=== PATIENT | female | born 1950 | race Caucasian/White ===

== ENCOUNTER 2016-11-24 06:12 | Emergency (ER) | payer MEDICARE ==
[2016-11-24] MEDS ORDERED: IBUPROFEN 600 MG TABLET PO ONE (08:43)
[2016-11-24] MEDS ORDERED: DOXYCYCLINE HYCLATE 100 MG TABLET PO ONE (08:43)
[2016-11-24 09:37] LABS: APPEARANCE,URINE CLEAR; BILIRUBIN,URINE NEGATIVE (NEGATIVE); GLUCOSE, URINE NEGATIVE (NEGATIVE); KETONES,URINE NEGATIVE (NEGATIVE); LEUKOCYTE ESTERASE,URINE MODERATE (NEGATIVE); NITRITE,URINE NEGATIVE (NEGATIVE); PROTEIN,URINE NEGATIVE (NEGATIVE); URINE SPECIFIC GRAVITY 1.011; UROBILINOGEN,URINE NEGATIVE mg/dL (<2.0)
--- NOTE | 2016-11-24 10:29 | ER Document Report ---
ED General - General Chief Complaint: Wound Infection Stated Complaint: POSSIBLE BUG BITE TRAVEL OUTSIDE OF THE [place] IN LAST 30 DAYS: No - HPI Patient complains to provider of: wound infection Notes: Patient coming in for multiple complaints patient's most important complaint is a wound infection of the left anterior lopes patient states had a bite approximately one week ago 2 days ago states that she dug a tick out of the wound. States since that time erythema now is having joint pain jaw pain shoulder pain. Patient also complains of left flank pain. Patient also complains of left shoulder pain after a fall she suffered this morning. Upon my evaluation patient is lying on her side quietly in no obvious distress. - Related Data Allergies/Adverse Reactions: adhesive tape [Adhesive Tape] Allergy (Intermediate, Verified 11/24/16 06:47) latex Allergy (Verified 11/24/16 06:47) cyclobenzaprine [From Flexeril] Adverse Reaction (Verified 11/24/16 06:47) Past Medical History - Social History Smoking Status: Never Smoker Chew tobacco use (# tins/day): No Frequency of alcohol use: None Drug Abuse: None Family History: Reviewed & Not Pertinent Patient has suicidal ideation: No Patient has homicidal ideation: No - Past Medical History Cardiac Medical History: Reports: Hx Atrial Fibrillation, Hx Congestive Heart Failure, Hx Hypercholesterolemia, Hx Hypertension Pulmonary Medical History: Denies: Hx Tuberculosis Neurological Medical History: Denies: Hx Seizures Endocrine Medical History: Reports: Hx Hypothyroidism. Denies: Hx Diabetes Mellitus Type 1, Hx Diabetes Mellitus Type 2, Hx Hyperthyroidism Renal/ Medical History: Reports: Hx End Stage Renal Disease - renal insufficiency. Denies: Hx Peritoneal Dialysis GI Medical History: Denies: Hx Cirrhosis, Hx Gastroesophageal Reflux Disease, Hx Hepatitis Musculoskeltal Medical History: Reports Hx Fibromyalgia Psychiatric Medical History: Reports: Hx Bipolar Disorder Infectious Medical History: Denies: Hx Hepatitis Past Surgical History: Reports: Hx Appendectomy, Hx Hysterectomy. Denies: Hx Pacemaker - Immunizations Hx Diphtheria, Pertussis, Tetanus Vaccination: Yes Review of Systems - Review of Systems Constitutional: No symptoms reported EENT: No symptoms reported Cardiovascular: No symptoms reported Respiratory: No symptoms reported Gastrointestinal: No symptoms reported Genitourinary: No symptoms reported Female Genitourinary: No symptoms reported Musculoskeletal: Other - Joint pain myalgias left shoulder pain after fall and wound infection Skin: No symptoms reported Hematologic/Lymphatic: No symptoms reported Neurological/Psychological: No symptoms reported -: Yes All other systems reviewed and negative Physical Exam - Vital signs Vitals: Temp Pulse Resp BP Pulse Ox 97.4 F 59 L 18 129/66 H 95 11/24/16 06:19 11/24/16 06:19 11/24/16 06:19 11/24/16 06:19 11/24/16 06:19 Interpretation: Normal - General General appearance: Appears well, Alert - HEENT Head: Normocephalic, Atraumatic Eyes: Normal Pupils: PERRL - Respiratory Respiratory status: No respiratory distress Chest status: Nontender Breath sounds: Normal Chest palpation: Normal - Cardiovascular Rhythm: Regular Heart sounds: Normal auscultation Murmur: No - Abdominal Inspection: Normal Distension: No distension Bowel sounds: Normal Tenderness: Nontender Organomegaly: No organomegaly - Back Back: Normal, Nontender - Extremities General upper extremity: Normal inspection, Nontender, Normal color, Normal ROM , Normal temperature General lower extremity: Nontender, Normal color, Normal ROM, Normal temperature , Normal weight bearing. No: Normal inspection - Patient has a wound proximal a 2 cm with 2 cm into the subcutaneous space fat with surrounding erythema on the left anterior lopes with signs of surrounding cellulitis no purulent drainage., Kamini's sign - Neurological Neuro grossly intact: Yes Cognition: Normal Orientation: AAOx4 Lagrange Coma Scale Eye Opening: Spontaneous Loco Coma Scale Verbal: Oriented Loco Coma Scale Motor: Obeys Commands Lagrange Coma Scale Total: 15 Speech: Normal Motor strength normal: LUE, RUE, LLE, RLE Sensory: Normal - Psychological Associated symptoms: Normal affect, Normal mood - Skin Skin Temperature: Warm Skin Moisture: Dry Skin Color: Normal Course - Re-evaluation Re-evalutation: 11/24/16 10:37 Reevaluation of the patient at this time patient is lying on her right side. Splint to patient that we will treat her with infection doxycycline urinalysis looks to have infection as well therefore doxycycline should be a good choice to also cover urinary infection. Patient states that she is very upset this time is that she has been on possible her entire ER stay. I did make mention to the patient that she has been lying on her right side looking very comfortable multiple times unable by the room patient was accepted stating that she never received the Lidoderm patch to have a mentioned on my first encounter explained to patient that she was allergic to adhesives. Patient otherwise has normal vital signs as showed no signs of distress or severe pain during her stay here in the ER. After last evaluation on did evaluate the patient's narcotics database does show multiple prescriptions for benzodiazepines and multiple prescriptions for narcotics in September. 11/24/16 14:48 Patient after initial evaluation requesting x-ray of the shoulder sprain the patient is in need to this she was able to pull herself up out of bed to sit up so I can listen to her lung sounds at this time do not feel there is no need for a shoulder x-ray. - Vital Signs Vital signs: Temp Pulse Resp BP Pulse Ox 98 F 56 L 16 111/59 L 96 11/24/16 11:08 11/24/16 11:08 11/24/16 11:08 11/24/16 11:08 11/24/16 11:08 - Laboratory Laboratory results interpreted by me: 11/24/16 09:10 Urine Blood MODERATE H Ur Leukocyte Esterase MODERATE H Discharge - Discharge Clinical Impression: Wound infection UTI (urinary tract infection) Qualifiers: Urinary tract infection type: site unspecified Hematuria presence: without hematuria Qualified Code(s): N39.0 - Urinary tract infection, site not specified Condition: Good Disposition: HOME, SELF-CARE Instructions: Urinary Tract Infection ([facility]), Wound Infection ([facility]), Chronic Pain Control ([facility]) Additional Instructions: We will start you on antibiotic on doxycycline for your wound infection. I am concern is that she state that this was a wound due to a tick bite. We will send laboratory studies looking for Lyme's disease and other tickborne illnesses. These laboratory testing results will not be available for approximately one week. He can follow-up with your primary care physician for these results. Most tickborne illnesses can be cured with doxycycline. Take medications as prescribed follow-up with your Dr. Continue to take Tylenol for your pain Prescriptions: Doxycycline Hyclate 100 mg PO BID #14 capsule Tramadol HCl [Ultram 50 mg Tablet] 50 mg PO ASDIR PRN #10 tablet PRN Reason: Forms: Return to Work
[2016-11-24 11:15] VITALS: BP 111/59
[2016-11-27 17:50] LABS: LYME DISEASE IGG AND IGM AB <0.91 ISR (0.00-0.90)
[2016-11-28 07:19] LABS: ROCKY MTN SPOTTED FEV IGG EIA Negative (Negative)
== END 2016-11-24 11:08 | disposition home or self-care (01) ==
LOC: ER 06:12
DX: S80.862A Insect bite (nonvenomous), left lower leg, initial encounter (principal); N39.0 Urinary tract infection, site not specified; W57.XXXA Bitten or stung by nonvenomous insect and other nonvenomous arthropods, initial encounter
CPT/HCPCS: 99283; 36415; 87040; 87086; 81001; 86757 ×2; 86618 ×2; 86617 ×2; A9270

== ENCOUNTER → 2017-02-06 | Outpatient (CLI) | payer MEDICARE, OTHER ==
--- NOTE | 2017-02-06 13:40 | WOMENS IMAGING REPORT ---
EXAM DESCRIPTION: BONE DENSITY HIP/SPINE COMPLETED DATE/TIME: 02/06/2017 1:29 pm REASON FOR STUDY: Z78.0 Z12.31 ENCNTR SCREEN MAMMOGRAM FOR MALIGNANT NEOPLASM OF JULIETTE Z78.0 ASYMPTO MATIC MENOPAUSAL STATE COMPARISON: None. TECHNIQUE: Dual-Energy X-ray Absorptiometry (DEXA) of the AP Spine and Hip. LIMITATIONS: None. FINDINGS: LUMBAR SPINE: The bone mineral density (BMD) measured from L1-L4 in the AP projection correlates with a T-score of -2.1, which is osteopenia as defined by the World Health Organization. HIP: The bone mineral density (BMD) measured in the left hip correlates with a T-score of -1.8, which is o steopenia as defined by the World Health Organization. IMPRESSION: 1. LUMBAR SPINE: OSTEOPENIA. 2. HIP: OSTEOPENIA. COMMENT: The World Health Organization defines low BMD as follows: T-score: Normal: Greater than -1.0 Osteopenia: Between -1.0 and -2.5 Osteoporosis: Less than -2.5 without fractures Established osteoporosis: Less than -2.5 with fractures In general, you may wish to consider: Diagnosis Treatment Follow-up DEXA Normal BMD Prevention 2-3 years Osteopenia Prevention/Therapy 1-2 years Osteoporosis Therapy Yearly TECHNICAL DOCUMENTATION: JOB ID: [id number]- All Rights Reserved
--- NOTE | 2017-02-06 17:22 | WOMENS IMAGING REPORT ---
EXAM DESCRIPTION: BILAT SCREENING MAMMO W/CAD COMPLETED DATE/TIME: 02/06/2017 1:29 pm REASON FOR STUDY: Z12.31, ROUTINE SCREENING MAMMO Z12.31 ENCNTR SCREEN MAMMOGRAM FOR MALIGNANT NEOP LASM OF JULIETTE Z78.0 ASYMPTOMATIC MENOPAUSAL STATE COMPARISON: 12/26/2015 and 05/31/2014. TECHNIQUE: Standard craniocaudal and mediolateral oblique views of each breast recorded using digita l acquisition. LIMITATIONS: None. FINDINGS: No masses, calcifications or architectural distortion. No areas of suspicion. Read with the assistance of CAD. .[facility] - R2 Cenova Version 1.3 .[facility] Imaging - R2 Cenova Version 1.3 .[facility] - R2 Cenova Version 2.4 .[facility] - R2 Cenova Version 2.4 .[facility] - R2 Emr Specialist Version 9.2 IMPRESSION: NORMAL MAMMOGRAM. BIRADS 1. BREAST DENSITY: a. The breasts are almost entirely fatty. BIRAD: 1 NEGATIVE RECOMMENDATION: ROUTINE SCREENING COMMENT: The patient has been notified of the results by letter per MQSA requirements. Additional no tification policies are in place for contacting patient with suspicious or incomplete findings. Quality ID #225: The [employer] recommends an annual screening mammogram for women aged 40 years or over. This facility utilizes a reminder system to ensure that all patients receive reminder letters, and/or direct phone calls for appointments. This includes reminders for routine scr eening mammograms, diagnostic mammograms, or other Breast Imaging Interventions when appropriate. Th is patient will be placed in the appropriate reminder system. The [employer] (ACR) has developed recommendations for screening MRI of the breast s in certain patient populations, to be used in conjunction with mammography. Breast MRI surveillanc e may be appropriate for women with more than 20% lifetime risk of developing breast cancer as deter mined by genetic testing, significant family history of the disease, or history of mantle radiation f or Hodgkins Disease. ACR Practice Guidelines 2008. TECHNICAL DOCUMENTATION: FINDING NUMBER: (1) ASSESSMENT: (1) JOB ID: [id number] [employer]- All Rights Reserved
== END ==
LOC: WI 13:16
PROVIDERS: ATTEND Nurse Practitioner Family
DX: Z12.31 Encounter for screening mammogram for malignant neoplasm of breast (principal); Z78.0 Asymptomatic menopausal state; M85.88 Other specified disorders of bone density and structure, other site
CPT/HCPCS: 77080; G0202; 77067

== ENCOUNTER 2017-02-20 05:36 | Day surgery (SDC) | payer MEDICARE, MEDICAID, OTHER ==
--- NOTE | 2017-02-13 10:34 | EKG REPORT ---
SEVERITY:- BORDERLINE ECG - SINUS BRADYCARDIA PROBABLE LEFT ATRIAL ABNORMALITY : Confirmed by: Melanie Shields 13-Feb-2017 10:33:31
[2017-02-13 10:50] LABS: ABSOLUTE BASOPHILS # (AUTO) 0.2 10^3/uL (0.0-0.2); ABSOLUTE EOSINOPHILS # (AUTO) 0.3 10^3/uL (0.0-0.6); ABSOLUTE LYMPHOCYTES (AUTO) 3.3 10^3/uL (0.5-4.7); ABSOLUTE MONOCYTES (AUTO) 0.8 10^3/uL (0.1-1.4); ABSOLUTE NEUT (AUTO) 3.9 10^3/uL (1.7-8.2); BASOPHILS % (AUTO) 1.8 % (0-2); EOSINOPHILS % (AUTO) 4.1 % (0-6); HEMATOCRIT 40.5 % (36.0-47.0); HEMOGLOBIN 13.2 g/dL (12.0-15.5); HGB HCT DIFFERENCE -0.9; LYMPHOCYTES % (AUTO) 39.1 % (13-45); MEAN CORPUSCULAR HEMOGLOBIN 29.7 pg (27.0-33.4); MEAN CORPUSCULAR HGB CONC 32.6 g/dL (32.0-36.0); MEAN CORPUSCULAR VOLUME 91 fl (80-97); MONOCYTES % (AUTO) 9.2 % (3-13); RED BLOOD COUNT 4.45 10^6/uL (3.72-5.28); RED CELL DISTRIBUTION WIDTH 14.3 % (11.5-14.0); SEGMENTED NEUTROPHILS % (AUTO) 45.8 % (42-78); WHITE BLOOD COUNT 8.5 10^3/uL (4.0-10.5)
--- NOTE | 2017-02-13 10:58 | RADIOLOGY REPORT (SQ) ---
EXAM DESCRIPTION: CHEST PA/LATERAL COMPLETED DATE/TIME: 02/13/2017 10:43 am REASON FOR STUDY: PRE OP COMPARISON: 08/30/2016 EXAM PARAMETERS: NUMBER OF VIEWS: two views TECHNIQUE: Digital Frontal and Lateral radiographic views of the chest acquired. RADIATION DOSE: NA LIMITATIONS: none FINDINGS: LUNGS AND PLEURA: No opacities, masses or pneumothorax. No pleural effusion. MEDIASTINUM AND HILAR STRUCTURES: No masses or contour abnormalities. HEART AND VASCULAR STRUCTURES: Heart normal size. No evidence for failure. BONES: No acute findings. HARDWARE: None in the chest. OTHER: No other significant finding. IMPRESSION: NO SIGNIFICANT RADIOGRAPHIC FINDING IN THE CHEST. TECHNICAL DOCUMENTATION: JOB ID: [id number] [employer]- All Rights Reserved
[2017-02-13 11:06] LABS: APPEARANCE,URINE CLEAR; BILIRUBIN,URINE NEGATIVE (NEGATIVE); GLUCOSE, URINE NEGATIVE (NEGATIVE); KETONES,URINE NEGATIVE (NEGATIVE); LEUKOCYTE ESTERASE,URINE TRACE (NEGATIVE); NITRITE,URINE NEGATIVE (NEGATIVE); PROTEIN,URINE NEGATIVE (NEGATIVE); URINE SPECIFIC GRAVITY 1.009; UROBILINOGEN,URINE NEGATIVE mg/dL (<2.0)
[2017-02-13 11:20] LABS: ANION GAP 13 (5-19); BLOOD UREA NITROGEN 24 mg/dL (7-20); CALCIUM 10.9 mg/dL (8.4-10.2); CARBON DIOXIDE 32 mmol/L (22-30); CHLORIDE 99 mmol/L (98-107); CREATININE RESULT 1.15 mg/dL (0.52-1.25); GLUCOSE 99 mg/dL (75-110); SODIUM 143.5 mmol/L (137-145)
[~2017-02-20 05:36] MED LIST: CEFAZOLIN 2 GM/D5W RTU 2 GM/50 ML RTUPB IV PRN; LACTATED RINGERS 1000 ML IV PRN; LIDOCAINE 0.5% INJ-PF (5 MG/ML) 50 ML SDV SUBCUT PRN
[2017-02-20] MEDS ORDERED: PROPOFOL INJ 200 MG/20 ML VIAL IV ONE (06:55)
[2017-02-20] MEDS ORDERED: DEXAMETHASONE SOD PHOSPHATE INJ 4 MG/1 ML VIAL ONE (06:55)
[2017-02-20] MEDS ORDERED: ONDANSETRON HCL INJ/PF 4 MG/2 ML SDV ONE (06:55)
[2017-02-20] MEDS ORDERED: FENTANYL CITRATE INJ/PF 100 MCG/2 ML AMPUL ONE (06:55)
[2017-02-20] MEDS ORDERED: MIDAZOLAM 2 MG/2 ML INJ ONE (06:55)
[2017-02-20] MEDS ORDERED: MORPHINE SULFATE 10 MG/ML INJ ONE (06:56)
[2017-02-20] MEDS ORDERED: IBUPROFEN INJ 800 MG/8 ML VIAL IV ONE (06:56)
[2017-02-20] MEDS ORDERED: BUPIVACAINE HCL 0.25 % INJ/PF (2.5 MG/1 ML) 30 ML VIAL ONE (07:04)
[2017-02-20] MEDS ORDERED: BUPIVACAINE HCL 0.25% /EPINEPHRINE INJ/PF 30 ML SDV ONE (07:39)
[2017-02-20] MEDS ORDERED: OXYCODONE-ACETAMINOPHEN 5-325 MG TABLET PO PRN ×2 (07:46)
[2017-02-20] MEDS ORDERED: PROMETHAZINE HCL INJ 25 MG/1 ML VIAL IV PRN ×2 (07:46)
[2017-02-20] MEDS ORDERED: MEPERIDINE HCL/PF INJ 25 MG/1 ML DISP.SYRIN IV PRN (07:46)
[2017-02-20] MEDS ORDERED: MORPHINE SULFATE 10 MG/ML INJ IV PRN (07:46)
[2017-02-20] MEDS ORDERED: FENTANYL CITRATE INJ/PF 100 MCG/2 ML AMPUL IV PRN ×3 (07:46)
[2017-02-20] MEDS ORDERED: DIPHENHYDRAMINE HCL 50 MG/ML VIAL IV PRN (07:46)
[2017-02-20] MEDS ORDERED: BUPIVACAINE HCL 0.25% /EPINEPHRINE INJ/PF 30 ML SDV INJ ONE (07:59)
--- NOTE | 2017-02-20 08:29 | Operative Report ---
Operative Report DATE OF SURGERY: 02/20/17 PREOPERATIVE DIAGNOSIS: Nonunion right medial malleolus fracture OPERATION: Removal of hardware, takedown of nonunion, nonunion, repeat internal fixation right medial malleolus SURGEON: PAMELLA ISABEL ANESTHESIA: GA TISSUE REMOVED OR ALTERED: Tissue to microbiology, hardware for patient ESTIMATED BLOOD LOSS: Minimal PROCEDURE: Procedure: Supine and abdomen table the right lower extremities prepped and draped in sterile fashion. Limb was elevated for exsanguination tourniquet inflated to 280 torr. A longitudinal incision was made over the midline of the medial malleolus and sharp dissection was carried incision down to bone. Subperiosteal dissection was performed to expose the medial malleolus. The 2 4.0 cannulated titanium screw was recently removed. Nonunion site is found with a 15 blade and then developed with a curette. The tissue taken from the nonunion site is sent for culture and sensitivity. The bone defect is grafted with a bone graft substitute from [employer] called VTOS. A titanium Laura spoon plate was then placed over the medial malleolus and secured proximally with 3 bicortical screws and distally with 4 locking screws. Hardware placement, fracture reduction are evaluated fluoroscopically and felt to be adequate. At this point the tourniquet was deflated. Hemostasis obtained with electrocautery. The wound was irrigated using bulb lavage. Is closed using interrupted Vicryl followed by nylon. A sterile compressive dressing and posterior plaster splint were applied and the patient's return to the PACU in satisfactory condition.
[2017-02-20] MEDS ORDERED: ALBUTEROL SULFATE 0.083% NEB 2.5 MG/3 ML AMPUL NEB ONE (08:34)
[2017-02-20] MEDS: FENTANYL CITRATE INJ/PF 100 MCG/2 ML AMPUL ONE ×2 (08:42→08:52)
[2017-02-20] MEDS ORDERED: OXYCODONE HCL IR 5 MG TABLET PO PRN (08:54)
[2017-02-20] MEDS ORDERED: ONDANSETRON 4 MG TAB.RAPDIS SL PRN (08:54)
--- NOTE | 2017-02-20 10:44 | RADIOLOGY REPORT (SQ) ---
EXAM DESCRIPTION: NO CHG FLUORO; ANKLE RIGHT AP/LATERAL COMPLETED DATE/TIME: 02/20/2017 10:29 am REASON FOR STUDY: ORIF RT ANKLE ASSISTED WITH FLUORO IN OR S82.841D DISPL BIMALLEOL FX R LOW LEG, S UBS FOR CLOS FX W RO Z79.899 OTHER WATER SUPERVISOR (CURRENT) DRUG THERAPY COMPARISON: None. FLUOROSCOPY TIME: 0.3 minutes 3 images saved to PACS. TECHNIQUE: Intra-operative images acquired during surgical procedure to evaluate progress. NUMBER OF IMAGES: 3 LIMITATIONS: None. FINDINGS: Plate and screw fixation of distal tibia and fibular fractures. Alignment is anatomic. IMPRESSION: IMAGE(S) OBTAINED DURING PROCEDURE. COMMENT: Quality ID 145: Final reports for procedures using fluoroscopy that document radiation exp osure indices, or exposure time and number of fluorographic images (if radiation exposure indices are not available) Please consult full operative report of the attending physician for description of the procedure. TECHNICAL DOCUMENTATION: JOB ID: [id number] [employer]- All Rights Reserved
--- NOTE | 2017-02-20 10:44 | RADIOLOGY REPORT (SQ) ---
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 FLUOROSCOPY TIME: 0.3 minutes 3 images saved to PACS. TECHNIQUE: Intra-operative images acquired during surgical procedure to evaluate progress. NUMBER OF IMAGES: 3 LIMITATIONS: None. FINDINGS: Plate and screw fixation of distal tibia and fibular fractures. Alignment is anatomic. IMPRESSION: IMAGE(S) OBTAINED DURING PROCEDURE. COMMENT: Quality ID 145: Final reports for procedures using fluoroscopy that document radiation exp osure indices, or exposure time and number of fluorographic images (if radiation exposure indices are not available) Please consult full operative report of the attending physician for description of the procedure. TECHNICAL DOCUMENTATION: JOB ID: [id number] [employer]- All Rights Reserved
[2017-02-20 11:04] VITALS: BP 109/51
[2017-02-20] MEDS ORDERED: SUCCINYLCHOLINE CHLORIDE INJ 200 MG/10 ML VIAL ONE (14:10)
== END 2017-02-20 10:35 | disposition home or self-care (01) ==
LOC: OROUT 05:36
PROVIDERS: ATTEND Orthopaedic Surgery
PROC: 0QSG04Z Reposition Right Tibia with Internal Fixation Device, Open Approach (ICD-10-PCS; 2017-02-20)
PROC: 0QPG04Z Removal of Internal Fixation Device from Right Tibia, Open Approach (ICD-10-PCS; principal; 2017-02-20 07:30)
DX: S82.51XK Displaced fracture of medial malleolus of right tibia, subsequent encounter for closed fracture with nonunion (principal); X58.XXXD Exposure to other specified factors, subsequent encounter; M79.671 Pain in right foot; Z79.899 Other long term (current) drug therapy; I10 Essential (primary) hypertension; K21.9 Gastro-esophageal reflux disease without esophagitis; E66.9 Obesity, unspecified; Z68.33 Body mass index [BMI] 33.0-33.9, adult; E03.9 Hypothyroidism, unspecified; D64.9 Anemia, unspecified
CPT/HCPCS: 93005; 36415 ×2; 87070; 87205; 84132; 85025; 87075; 80048; 81001; 73600; 71020; 93010; 20680; 27766; C1713 ×3; J2250; J3490; J1100; J3010; J2270; J0330; J2405; J2704; A9270 ×2; J0690; 01480; J1741

== ENCOUNTER → 2017-09-13 | Outpatient (CLI) | payer MEDICARE ==
--- NOTE | 2017-09-13 12:03 | RADIOLOGY REPORT (SQ) ---
EXAM DESCRIPTION: CAROTID DOPPLER COMPLETED DATE/TIME: 09/13/2017 10:35 am REASON FOR STUDY: BRUIT R09.89 OTH SYMPTOMS AND SIGNS INVOLVING THE CIRC AND RESP SY COMPARISON: None. TECHNIQUE: Grayscale ultrasound, Doppler velocity and spectra, and color Doppler images acquired of the extra-cranial carotid and vertebral arteries. Images stored on PACS. LIMITATIONS: None. FINDINGS: RIGHT CAROTID CCA Velocities: Within normal limits. ICA Velocities Peak systolic 0.50 m/s. End diastolic 0.13 m/s. Proximal ICA/CCA peak systolic ratio 1.0. Spectra normal. No significant plaque. LEFT CAROTID CCA Velocities: Within normal limits. ICA Velocities Peak systolic 0.68 m/s. End diastolic 0.13 m/s. Proximal ICA/CCA peak systolic ratio 1.0. Spectra normal. No significant plaque. VERTEBRAL ARTERIES: Antegrade flow. Normal waveforms. SUBCLAVIAN ARTERIES: Not evaluated OTHER: No other significant finding. IMPRESSION: NO HEMODYNAMICALLY SIGNIFICANT STENOSIS. COMMENT: Quality ID #195: Velocity criteria are extrapolated from the diameter data as defined by t he Society of Radiologists in Ultrasound Consensus Conference. Radiology 2003: 229; 340-346. TECHNICAL DOCUMENTATION: JOB ID: [id number] [employer]- All Rights Reserved
== END ==
LOC: SP 09:49
PROVIDERS: ATTEND Nurse Practitioner Family
DX: R09.89 Other specified symptoms and signs involving the circulatory and respiratory systems (principal)
CPT/HCPCS: 93880

== ENCOUNTER → 2017-09-13 | Outpatient (CLI) | payer MEDICARE, OTHER ==
[2017-09-13 12:55] LABS: ABSOLUTE BASOPHILS # (AUTO) 0.1 10^3/uL (0.0-0.2); ABSOLUTE EOSINOPHILS # (AUTO) 0.2 10^3/uL (0.0-0.6); ABSOLUTE LYMPHOCYTES (AUTO) 2.3 10^3/uL (0.5-4.7); ABSOLUTE MONOCYTES (AUTO) 0.6 10^3/uL (0.1-1.4); ABSOLUTE NEUT (AUTO) 3.4 10^3/uL (1.7-8.2); BASOPHILS % (AUTO) 1.3 % (0-2); EOSINOPHILS % (AUTO) 3.4 % (0-6); HEMOGLOBIN 13.5 g/dL (12.0-15.5); LYMPHOCYTES % (AUTO) 35.3 % (13-45); MEAN CORPUSCULAR HEMOGLOBIN 30.3 pg (27.0-33.4); MEAN CORPUSCULAR HGB CONC 33.8 g/dL (32.0-36.0); MEAN CORPUSCULAR VOLUME 90 fl (80-97); PLATELET COUNT 257 10^3/uL (150-450); RED BLOOD COUNT 4.45 10^6/uL (3.72-5.28); TOTAL CELLS COUNTED % (AUTO) 100 %; WHITE BLOOD COUNT 6.6 10^3/uL (4.0-10.5)
[2017-09-13 13:40] LABS: IRON(TIBC) 74.7 ug/dL (37-170)
[2017-09-13 13:42] LABS: ANION GAP 13 (5-19); BLOOD UREA NITROGEN 31 mg/dL (7-20); CALCIUM 11.6 mg/dL (8.4-10.2); CARBON DIOXIDE 30 mmol/L (22-30); CHLORIDE 103 mmol/L (98-107); GLUCOSE 111 mg/dL (75-110); MAGNESIUM 2.1 mg/dL (1.6-2.3); POTASSIUM 4.6 mmol/L (3.6-5.0); SODIUM 146.1 mmol/L (137-145)
== END ==
LOC: OD 12:17
PROVIDERS: ATTEND Internal Medicine Nephrology
DX: I12.9 Hypertensive chronic kidney disease with stage 1 through stage 4 chronic kidney disease, or unspecified chronic kidney disease (principal); N18.3 Chronic kidney disease, stage 3 (moderate); E03.9 Hypothyroidism, unspecified; D64.9 Anemia, unspecified; E11.69 Type 2 diabetes mellitus with other specified complication; E55.9 Vitamin D deficiency, unspecified
CPT/HCPCS: 36415; 80048; 82306; 83036; 83540; 83550; 83735; 84443; 85025

== ENCOUNTER 2018-03-21 06:40 | Emergency (ER) | payer MEDICARE, MEDICAID ==
[2018-03-21] MEDS ORDERED: MAG HYDROX/AL HYDROX/SIMETH SUSP 30 ML UDCUP PO ONE (07:41)
[2018-03-21] MEDS ORDERED: DIPHENHYDRAMINE HCL 25 MG/10 ML UDC PO ONE (07:41)
[2018-03-21] MEDS ORDERED: LIDOCAINE 2% VISCOUS SOLN 20 ML UDCUP PO ONE (07:41)
--- NOTE | 2018-03-21 07:41 | ER Document Report ---
ED Oral Problem - General Chief Complaint: Mouth Problem Stated Complaint: MOUTH PROBLEM Time Seen by Provider: 03/21/18 07:01 Mode of Arrival: Ambulatory Information source: Patient Notes: Patient is a 67-year-old female who presents to the ER today for ulcers/sores on the inside of her lips and under her tongue 3 days. Patient has been under a lot of stress as her sister is currently dying in the hospital. Patient denies any history of herpes or sores in her mouth before, she denies any sores on her hands or feet. She denies any fevers, chills, runny nose, cough or other symptoms. TRAVEL OUTSIDE OF THE [place] IN LAST 30 DAYS: No - Related Data Allergies/Adverse Reactions: adhesive tape [Adhesive Tape] Allergy (Intermediate, Verified 11/24/16 06:47) cyclobenzaprine [From Flexeril] Adverse Reaction (Verified 11/24/16 06:47) Past Medical History - General Information source: Patient - Social History Smoking Status: Unknown if Ever Smoked Family History: Reviewed & Not Pertinent Patient has suicidal ideation: No Patient has homicidal ideation: No - Past Medical History Cardiac Medical History: Reports: Hx Atrial Fibrillation, Hx Congestive Heart Failure, Hx Hypercholesterolemia, Hx Hypertension Denies: Hx Coronary Artery Disease, Hx Heart Attack Pulmonary Medical History: Denies: Hx Asthma, Hx Bronchitis, Hx COPD, Hx Pneumonia, Hx Tuberculosis Neurological Medical History: Denies: Hx Cerebrovascular Accident, Hx Seizures Endocrine Medical History: Reports: Hx Hypothyroidism. Denies: Hx Diabetes Mellitus Type 1, Hx Diabetes Mellitus Type 2, Hx Hyperthyroidism Renal/ Medical History: Reports: Hx End Stage Renal Disease - renal insufficiency. Denies: Hx Peritoneal Dialysis GI Medical History: Denies: Hx Cirrhosis, Hx Gastroesophageal Reflux Disease, Hx Hepatitis Musculoskeltal Medical History: Reports Hx Arthritis - left great toe, Reports Hx Fibromyalgia Psychiatric Medical History: Reports: Hx Bipolar Disorder Infectious Medical History: Denies: Hx Hepatitis Past Surgical History: Reports: Hx Appendectomy, Hx Hysterectomy. Denies: Hx Pacemaker - Immunizations Hx Diphtheria, Pertussis, Tetanus Vaccination: Yes Hx Pneumococcal Vaccination: 05/17/16 Review of Systems - Review of Systems Constitutional: No symptoms reported EENT: See HPI Cardiovascular: No symptoms reported Respiratory: No symptoms reported Gastrointestinal: No symptoms reported Genitourinary: No symptoms reported Female Genitourinary: No symptoms reported Musculoskeletal: No symptoms reported Skin: No symptoms reported Hematologic/Lymphatic: No symptoms reported Neurological/Psychological: No symptoms reported Physical Exam - Vital signs Vitals: Temp Pulse Resp BP Pulse Ox 97.4 F 58 L 18 184/69 H 97 03/21/18 06:45 03/21/18 06:45 03/21/18 06:45 03/21/18 06:45 03/21/18 06:45 - Notes Notes: PHYSICAL EXAMINATION: GENERAL: Anxious appearing, but in no acute distress. HEAD: Atraumatic, normocephalic. EYES: Pupils equal round and reactive to light, extraocular movements intact, sclera anicteric, conjunctiva are normal. ENT: ear canals without erythema or foreign body, TMs pearly bridges with good bony landmarks, nares patent, oropharynx clear without exudates. Moist mucous membranes. Oral mucosa with approximately 5 small aphthous ulcers, no erythema or drainage, poor dentition NECK: Normal range of motion, supple without lymphadenopathy LUNGS: CTAB and equal. No wheezes rales or rhonchi. HEART: Regular rate and rhythm without murmurs EXTREMITIES: Normal range of motion, no pitting edema. No cyanosis. NEUROLOGICAL: Cranial nerves grossly intact. Normal sensory/motor exams. PSYCH: Normal mood, normal affect. SKIN: Warm, Dry, normal turgor, no lesions on hands or feet are otherwise no rashes or lesions noted Course - Vital Signs Vital signs: Temp Pulse Resp BP Pulse Ox 97.4 F 58 L 18 184/69 H 97 03/21/18 06:45 03/21/18 06:45 03/21/18 06:45 03/21/18 06:45 03/21/18 06:45 Discharge - Discharge Clinical Impression: Aphthous ulcer Condition: Stable Disposition: HOME, SELF-CARE Additional Instructions: Return immediately for any new or worsening symptoms. Follow up with primary care provider, call tomorrow to make followup appointment. Prescriptions: Nystatin/Dexameth/Diphen [Magic Mouthwash ([facility] Formula) Susp] 5 ml PO QID #120 ml Referrals: MARTA ORTEGA, SEWING MACHINE OPERATOR PLASTIC ZIPPER [Primary Care Provider] - Follow up as needed
[2018-03-21 08:01] VITALS: BP 140/75
== END 2018-03-21 08:00 | disposition home or self-care (01) ==
LOC: ER 06:40
DX: K12.0 Recurrent oral aphthae (principal); I10 Essential (primary) hypertension; Z91.048 Other nonmedicinal substance allergy status
CPT/HCPCS: 99282; 36415; 85027; 80048; 81001; A9270; J3490

== ENCOUNTER → 2018-03-21 | Outpatient (CLI) | payer MEDICARE, MEDICAID ==
[2018-03-21 09:32] LABS: HEMATOCRIT 35.9 % (36.0-47.0); HEMOGLOBIN 11.9 g/dL (12.0-15.5); MEAN CORPUSCULAR HEMOGLOBIN 29.6 pg (27.0-33.4); MEAN CORPUSCULAR HGB CONC 33.1 g/dL (32.0-36.0); MEAN CORPUSCULAR VOLUME 90 fl (80-97); PLATELET COUNT 289 10^3/uL (150-450); RED CELL DISTRIBUTION WIDTH 12.5 % (11.5-14.0); WHITE BLOOD COUNT 8.3 10^3/uL (4.0-10.5)
[2018-03-21 09:50] LABS: APPEARANCE,URINE CLEAR; BILIRUBIN,URINE NEGATIVE (NEGATIVE); COLOR,URINE STRAW; GLUCOSE, URINE NEGATIVE (NEGATIVE); KETONES,URINE NEGATIVE (NEGATIVE); LEUKOCYTE ESTERASE,URINE NEGATIVE (NEGATIVE); NITRITE,URINE NEGATIVE (NEGATIVE); PROTEIN,URINE NEGATIVE (NEGATIVE); URINE SPECIFIC GRAVITY 1.014; UROBILINOGEN,URINE NEGATIVE mg/dL (<2.0)
[2018-03-21 09:55] LABS: ANION GAP 10 (5-19); BLOOD UREA NITROGEN 52 mg/dL (7-20); CALCIUM 10.1 mg/dL (8.4-10.2); CARBON DIOXIDE 31 mmol/L (22-30); CHLORIDE 102 mmol/L (98-107); GLUCOSE 130 mg/dL (75-110); POTASSIUM 5.2 mmol/L (3.6-5.0); SODIUM 143.4 mmol/L (137-145)
== END ==
LOC: OD 08:54
PROVIDERS: ATTEND Internal Medicine Nephrology
DX: I12.9 Hypertensive chronic kidney disease with stage 1 through stage 4 chronic kidney disease, or unspecified chronic kidney disease (principal); N18.3 Chronic kidney disease, stage 3 (moderate); D64.9 Anemia, unspecified
CPT/HCPCS: 36415; 80048; 81001; 85027

== ENCOUNTER → 2018-09-29 | Outpatient (CLI) | payer MEDICARE ==
--- NOTE | 2018-09-29 13:44 | WOMENS IMAGING REPORT ---
EXAM DESCRIPTION: BILAT SCREENING MAMMO W/CAD COMPLETED DATE/TIME: 09/29/2018 11:27 am REASON FOR STUDY: ROUTINE BILATERAL SCREENING;Z12.31Z12.31 ENCNTR SCREEN MAMMOGRAM FOR MALIGNANT NE OPLASM OF JULIETTE COMPARISON: 02/06/2017, 12/26/2015, 05/31/2014 TECHNIQUE: Standard craniocaudal and mediolateral oblique views of each breast recorded using Voovio aka 3Ditizea l acquisition. LIMITATIONS: None. FINDINGS: RIGHT BREAST MASSES: No suspicious masses. CALCIFICATIONS: No new or suspicious calcifications. ARCHITECTURAL DISTORTION: None. DEVELOPING DENSITY: None. ASYMMETRY: None noted. OTHER: No other significant findings. LEFT BREAST MASSES: No suspicious masses. CALCIFICATIONS: No new or suspicious calcifications. ARCHITECTURAL DISTORTION: None. DEVELOPING DENSITY: None. ASYMMETRY: None noted. OTHER: On left MLO view only, there are 2 subcentimeter lymph nodes along the pectoralis muscle, new compared to prior exams. Additional left breast exaggerated craniocaudad view, 90 mediolateral view , and left breast/ axillary ultrasound in the area of lymph nodes is recommended for followup Read with the assistance of CAD. .[facility] - R2 Cenova Version 1.3 .[facility] - R2 Cenova Version 1.3 .[facility] - R2 Cenova Version 2.4 .[facility] [place]2 Cenova Version 2.4 .[facility] - R2 Automobile Upholsterer Apprentice Version 9.2 IMPRESSION: No mammographic evidence for malignancy right breast. 2 subcentimeter lymph nodes projected over the left pectoralis muscle on the MLO view only, requires further investigation with diagnostic mammograms and ultrasound as above. BREAST DENSITY: b. There are scattered areas of fibroglandular density. BIRAD: 0 Incomplete: Needs Additional Imaging Evaluation and/or prior Mammograms for Comparison. RECOMMENDATION: RECOMMENDED FOLLOW-UP: Left breast diagnostic mammograms and ultrasound The patient will be contacted for additional imaging. COMMENT: The patient has been notified of the results by letter per SA requirements. Additional no tification policies are in place for contacting patient with suspicious or incomplete findings. Quality ID #[id number]: The [employer] recommends an annual screening mammogram for women aged 40 years or over. This facility utilizes a reminder system to ensure that all patients receive reminder letters, and/or direct phone calls for appointments. This includes reminders for routine scr eening mammograms, diagnostic mammograms, or other Breast Imaging Interventions when appropriate. Th is patient will be placed in the appropriate reminder system. The [employer] (ACR) has developed recommendations for screening MRI of the breast s in certain patient populations, to be used in conjunction with mammography. Breast MRI surveillanc e may be appropriate for women with more than 20% lifetime risk of developing breast cancer as deter mined by genetic testing, significant family history of the disease, or history of mantle radiation f or Hodgkins Disease. ACR Practice Guidelines 2008. TECHNICAL DOCUMENTATION: FINDING NUMBER: (1) ASSESSMENT: (1) JOB ID: [id number] [employer]- All Rights Reserved Reading location - IP/workstation name: [email or web address]
== END ==
LOC: WI 11:13
PROVIDERS: ATTEND Nurse Practitioner Family
DX: Z12.31 Encounter for screening mammogram for malignant neoplasm of breast (principal)
CPT/HCPCS: 77067

== ENCOUNTER → 2018-10-07 | Outpatient (CLI) | payer MEDICARE ==
--- NOTE | 2018-10-08 13:08 | WOMENS IMAGING REPORT ---
EXAM DESCRIPTION: LEFT DIAGNOSTIC MAMMO W/CAD; U/S BREAST UNILAT LIMITED COMPLETED DATE/TIME: 10/07/2018 1:29 pm; 10/07/2018 2:18 pm REASON FOR STUDY: R92.2; LT BREAST R92.2 R92.2 INCONCLUSIVE MAMMOGRAM COMPARISON: Multiple since 2013 TECHNIQUE: Cone compression craniocaudal and mediolateral oblique images of the breast recorded with digital acquisition. Whole breast right 90 mediolateral view, whole breast exaggerated craniocaudad view Left breast/axilla ultrasound LIMITATIONS: None. FINDINGS: BREAST: Left MASSES: No suspicious masses. CALCIFICATIONS: No new or suspicious calcifications. ARCHITECTURAL DISTORTION: None. DEVELOPING DENSITY: None. ASYMMETRY: None noted. OTHER: Too small intramammary lymph nodes are present high over the axillary tail of Jacobs/inferior axilla. These have central hilar fat on cone compression views Read with the assistance of CAD. .[facility] - R2 Cenova Version 1.3 .[facility] Imaging - R2 Cenova Version 1.3 .[facility] - R2 Cenova Version 2.4 .[facility]2 Cenova Version 2.4 .[facility] - R2 Green Lumber Grader Version 9.2 Right breast/axilla ultrasound Ultrasound of the far right upper outer quadrant/inferior axilla demonstrates benign subcentimeter ly mph nodes with central hilar fat. No focal cortical thickening or worrisome features. IMPRESSION: Benign-appearing left intramammary lymph nodes far upper outer quadrant BREAST DENSITY: b. There are scattered areas of fibroglandular density. BIRAD: 2 Benign findings. RECOMMENDATION: RECOMMENDED FOLLOW UP: Please continue yearly bilateral screening mammography/ tomos ynthesis in September 2019 SPECIFIC INTERVENTION/IMAGING/CONSULTATION RECOMMENDED:No additional intervention/ imaging/consultati on needed at this time. COMMUNICATION:Patient notified by letter COMMENT: The patient has been notified of the results by letter per SA requirements. Additional no tification policies are in place for contacting patient with suspicious or incomplete findings. Quality ID #[id number]: The [employer] recommends an annual screening mammogram for women aged 40 years or over. This facility utilizes a reminder system to ensure that all patients receive reminder letters, and/or direct phone calls for appointments. This includes reminders for routine scr eening mammograms, diagnostic mammograms, or other Breast Imaging Interventions when appropriate. Th is patient will be placed in the appropriate reminder system. The [employer] (ACR) has developed recommendations for screening MRI of the breast s in certain patient populations, to be used in conjunction with mammography. Breast MRI surveillanc e may be appropriate for women with more than 20% lifetime risk of developing breast cancer as deter mined by genetic testing, significant family history of the disease, or history of mantle radiation f or Hodgkins Disease. ACR Practice Guidelines 2008. TECHNICAL DOCUMENTATION: FINDING NUMBER: (1) ASSESSMENT: (1) JOB ID: [id number] [employer]- All Rights Reserved Reading location - IP/workstation name: [email or web address]
--- NOTE | 2018-10-08 13:08 | WOMENS IMAGING REPORT ---
EXAM DESCRIPTION: LEFT DIAGNOSTIC MAMMO W/CAD; U/S BREAST UNILAT LIMITED COMPLETED DATE/TIME: 10/07/2018 1:29 pm; 10/07/2018 2:18 pm REASON FOR STUDY: R92.2; LT BREAST R92.2 R92.2 INCONCLUSIVE MAMMOGRAM COMPARISON: Multiple since 2013 TECHNIQUE: Cone compression craniocaudal and mediolateral oblique images of the breast recorded with digital acquisition. Whole breast right 90 mediolateral view, whole breast exaggerated craniocaudad view Left breast/axilla ultrasound LIMITATIONS: None. FINDINGS: BREAST: Left MASSES: No suspicious masses. CALCIFICATIONS: No new or suspicious calcifications. ARCHITECTURAL DISTORTION: None. DEVELOPING DENSITY: None. ASYMMETRY: None noted. OTHER: Too small intramammary lymph nodes are present high over the axillary tail of Jacobs/inferior axilla. These have central hilar fat on cone compression views Read with the assistance of CAD. .[facility] - R2 Cenova Version 1.3 .[facility] - R2 Cenova Version 1.3 .[facility] - R2 Cenova Version 2.4 .[facility] [place] R2 Cenova Version 2.4 .[facility] - R2 Washerette Machine Operator Version 9.2 Right breast/axilla ultrasound Ultrasound of the far right upper outer quadrant/inferior axilla demonstrates benign subcentimeter ly mph nodes with central hilar fat. No focal cortical thickening or worrisome features. IMPRESSION: Benign-appearing left intramammary lymph nodes far upper outer quadrant BREAST DENSITY: b. There are scattered areas of fibroglandular density. BIRAD: 2 Benign findings. RECOMMENDATION: RECOMMENDED FOLLOW UP: Please continue yearly bilateral screening mammography/ tomos ynthesis in September 2019 SPECIFIC INTERVENTION/IMAGING/CONSULTATION RECOMMENDED:No additional intervention/ imaging/consultati on needed at this time. COMMUNICATION:Patient notified by letter COMMENT: The patient has been notified of the results by letter per SA requirements. Additional no tification policies are in place for contacting patient with suspicious or incomplete findings. Quality ID #225: The [employer] recommends an annual screening mammogram for women aged 40 years or over. This facility utilizes a reminder system to ensure that all patients receive reminder letters, and/or direct phone calls for appointments. This includes reminders for routine scr eening mammograms, diagnostic mammograms, or other Breast Imaging Interventions when appropriate. Th is patient will be placed in the appropriate reminder system. The [employer] (ACR) has developed recommendations for screening MRI of the breast s in certain patient populations, to be used in conjunction with mammography. Breast MRI surveillanc e may be appropriate for women with more than 20% lifetime risk of developing breast cancer as deter mined by genetic testing, significant family history of the disease, or history of mantle radiation f or Hodgkins Disease. ACR Practice Guidelines 2008. TECHNICAL DOCUMENTATION: FINDING NUMBER: (1) ASSESSMENT: (1) JOB ID: [id number] [employer]- All Rights Reserved Reading location - IP/workstation name: [email or web address]
== END ==
LOC: WI 13:14
PROVIDERS: ATTEND Nurse Practitioner Family
DX: R92.2 Inconclusive mammogram (principal)
CPT/HCPCS: 76642

== ENCOUNTER → 2018-11-20 | Outpatient (CLI) | payer MEDICARE, MEDICAID ==
[2018-11-20 13:15] LABS: APPEARANCE,URINE CLEAR; BILIRUBIN,URINE NEGATIVE (NEGATIVE); COLOR,URINE YELLOW; GLUCOSE, URINE NEGATIVE (NEGATIVE); KETONES,URINE NEGATIVE (NEGATIVE); LEUKOCYTE ESTERASE,URINE NEGATIVE (NEGATIVE); NITRITE,URINE NEGATIVE (NEGATIVE); PROTEIN,URINE NEGATIVE (NEGATIVE); URINE SPECIFIC GRAVITY 1.013; UROBILINOGEN,URINE NEGATIVE mg/dL (<2.0)
[2018-11-20 13:20] LABS: HEMATOCRIT 40.7 % (36.0-47.0); MEAN CORPUSCULAR HGB CONC 34.4 g/dL (32.0-36.0); MEAN CORPUSCULAR VOLUME 90 fl (80-97); PLATELET COUNT 243 10^3/uL (150-450); RED BLOOD COUNT 4.51 10^6/uL (3.72-5.28); RED CELL DISTRIBUTION WIDTH 13.7 % (11.5-14.0); WHITE BLOOD COUNT 7.5 10^3/uL (4.0-10.5)
[2018-11-20 13:39] LABS: ANION GAP 13 (5-19); BLOOD UREA NITROGEN 43 mg/dL (7-20); CALCIUM 11.6 mg/dL (8.4-10.2); CARBON DIOXIDE 30 mmol/L (22-30); CHLORIDE 101 mmol/L (98-107); GLUCOSE 126 mg/dL (75-110); POTASSIUM 4.8 mmol/L (3.6-5.0); SODIUM 144.2 mmol/L (137-145)
== END ==
LOC: OD 12:04
PROVIDERS: ATTEND Internal Medicine Nephrology
DX: I12.9 Hypertensive chronic kidney disease with stage 1 through stage 4 chronic kidney disease, or unspecified chronic kidney disease (principal); N18.3 Chronic kidney disease, stage 3 (moderate); E87.5 Hyperkalemia
CPT/HCPCS: 36415; 80048; 81001; 83735; 85027

== ENCOUNTER 2019-03-08 09:03 | Emergency (ER) | payer MEDICARE, MEDICAID ==
[2019-03-08] MEDS ORDERED: FAMOTIDINE 20 MG TABLET PO ONE (09:20)
--- NOTE | 2019-03-08 09:20 | ER Document Report ---
ED Medical Screen (RME) - General Chief Complaint: Chest Pain Stated Complaint: CHEST PAIN Primary Care Provider: Tila MCKNIGHT MD [Primary Care Provider] - Follow up as needed TRAVEL OUTSIDE OF THE [place] IN LAST 30 DAYS: No - HPI Notes: 03/08/19 09:12 Patient is a 68-year-old female with a history of hypertension, congestive heart failure, chronic kidney disease who presents complaining of chest pain shortness of breath that began about an hour ago. Patient states that she also has a burning sensation to her esophagus and throat. Pain does not radiate. No history of CAD, diabetes, PE, DVT. Denies LEHMAN, fever, neck pain, URI, Abd pain, n/v/d, dysuria, back pain, or rash. I have treated and performed a rapid initial assessment of this patient. A comprehensive ED assessment and evaluation of the patient, analysis of test results and completion of medical decision making process will be conducted by additional ED providers. PHYSICAL EXAMINATION: GENERAL: Well-appearing, well-nourished and in no acute distress. A&Ox4. Answers questions appropriately. LUNGS: Breath sounds clear to auscultation bilaterally and equal. No wheezes rales or rhonchi. HEART: Regular rate and rhythm without murmurs, rubs, gallops. Extremities: No cyanosis, clubbing, or edema b/l. NEUROLOGICAL: Normal speech, normal gait. PSYCH: Normal mood, normal affect. - Related Data Allergies/Adverse Reactions: adhesive tape [Adhesive Tape] Allergy (Intermediate, Verified 03/08/19 09:04) cyclobenzaprine [From Flexeril] Adverse Reaction (Verified 03/08/19 09:04) Past Medical History - Past Medical History Cardiac Medical History: Reports: Hx Atrial Fibrillation, Hx Congestive Heart Failure, Hx Hypercholesterolemia, Hx Hypertension Denies: Hx Coronary Artery Disease, Hx Heart Attack Pulmonary Medical History: Denies: Hx Asthma, Hx Bronchitis, Hx COPD, Hx Pneumonia, Hx Tuberculosis Neurological Medical History: Denies: Hx Cerebrovascular Accident, Hx Seizures Endocrine Medical History: Reports: Hx Hypothyroidism. Denies: Hx Diabetes Mellitus Type 1, Hx Diabetes Mellitus Type 2, Hx Hyperthyroidism Renal/ Medical History: Reports: Hx End Stage Renal Disease - renal insu fficiency. Denies: Hx Peritoneal Dialysis GI Medical History: Denies: Hx Cirrhosis, Hx Gastroesophageal Reflux Disease, Hx Hepatitis Musculoskeltal Medical History: Reports Hx Arthritis - left great toe, Reports Hx Fibromyalgia Psychiatric Medical History: Reports: Hx Bipolar Disorder Infectious Medical History: Denies: Hx Hepatitis Past Surgical History: Reports: Hx Appendectomy, Hx Hysterectomy. Denies: Hx Pacemaker - Immunizations Hx Diphtheria, Pertussis, Tetanus Vaccination: Yes Doctor's Discharge - Discharge Referrals: Tila MCKNIGHT MD [Primary Care Provider] - Follow up as needed
--- NOTE | 2019-03-08 09:30 | EKG REPORT ---
SEVERITY:- ABNORMAL ECG - SINUS RHYTHM PROBABLE LEFT ATRIAL ABNORMALITY LVH WITH SECONDARY REPOLARIZATION ABNORMALITY : Confirmed by: Yamilet Lane MD 08-Mar-2019 09:29:11
[2019-03-08 09:52] LABS: ABSOLUTE BASOPHILS # (AUTO) 0.1 10^3/uL (0.0-0.2); ABSOLUTE EOSINOPHILS # (AUTO) 0.2 10^3/uL (0.0-0.6); ABSOLUTE MONOCYTES (AUTO) 0.6 10^3/uL (0.1-1.4); BASOPHILS % (AUTO) 1.2 % (0-2); EOSINOPHILS % (AUTO) 2.7 % (0-6); HEMATOCRIT 40.5 % (36.0-47.0); HEMOGLOBIN 13.6 g/dL (12.0-15.5); LYMPHOCYTES % (AUTO) 43.9 % (13-45); MEAN CORPUSCULAR HGB CONC 33.6 g/dL (32.0-36.0); MEAN CORPUSCULAR VOLUME 89 fl (80-97); MONOCYTES % (AUTO) 8.8 % (3-13); PLATELET COUNT 229 10^3/uL (150-450); RED BLOOD COUNT 4.54 10^6/uL (3.72-5.28); RED CELL DISTRIBUTION WIDTH 13.3 % (11.5-14.0); SEGMENTED NEUTROPHILS % (AUTO) 43.4 % (42-78); TOTAL CELLS COUNTED % (AUTO) 100 %; WHITE BLOOD COUNT 6.9 10^3/uL (4.0-10.5)
[2019-03-08] MEDS ORDERED: MAG HYDROX/AL HYDROX/SIMETH SUSP 30 ML UDCUP PO ONE (09:55)
[2019-03-08] MEDS ORDERED: LIDOCAINE 2% VISCOUS SOLN 20 ML UDCUP PO ONE (09:55)
[2019-03-08 10:11] LABS: ALANINE AMINOTRANSFERASE 38 U/L (9-52); ALBUMIN 4.8 g/dL (3.5-5.0); ALKALINE PHOSPHATASE 78 U/L (38-126); ANION GAP 7 (5-19); ASPARTATE AMINO TRANSFERASE 39 U/L (14-36); BILIRUBIN,DIRECT 0.4 mg/dL (0.0-0.4); BILIRUBIN,TOTAL 0.6 mg/dL (0.2-1.3); BLOOD UREA NITROGEN 31 mg/dL (7-20); CALCIUM 10.5 mg/dL (8.4-10.2); CARBON DIOXIDE 32 mmol/L (22-30); CHLORIDE 102 mmol/L (98-107); GLUCOSE 124 mg/dL (75-110); POTASSIUM 4.3 mmol/L (3.6-5.0); SODIUM 140.8 mmol/L (137-145); TOTAL PROTEIN 7.8 g/dL (6.3-8.2)
--- NOTE | 2019-03-08 10:25 | RADIOLOGY REPORT (SQ) ---
EXAM DESCRIPTION: CHEST SINGLE VIEW COMPLETED DATE/TIME: 03/08/2019 10:06 am REASON FOR STUDY: CP COMPARISON: None. EXAM PARAMETERS: NUMBER OF VIEWS: One view. TECHNIQUE: Single frontal radiographic view of the chest acquired. RADIATION DOSE: NA LIMITATIONS: None. FINDINGS: LUNGS AND PLEURA: No opacities, masses or pneumothorax. No pleural effusion. MEDIASTINUM AND HILAR STRUCTURES: No masses. Contour normal. HEART AND VASCULAR STRUCTURES: Heart normal in size. Normal vasculature. Calcified mitral annulus. BONES: No acute findings. HARDWARE: None in the chest. OTHER: No other significant finding. IMPRESSION: NO ACUTE RADIOGRAPHIC FINDING IN THE CHEST. TECHNICAL DOCUMENTATION: JOB ID: [id number] [employer]- All Rights Reserved Reading location - IP/workstation name: [email or web address]
[2019-03-08 13:22] VITALS: BP 136/72
--- NOTE | 2019-03-08 17:31 | ER Document Report ---
Entered by JAVIER GORMAN SCRIBE 03/08/19 1055 Acting as scribe for:BO BATES DO ED General - General Chief Complaint: Chest Pain Stated Complaint: CHEST PAIN Time Seen by Provider: 03/08/19 09:21 Primary Care Provider: Tila MCKNIGHT MD [Primary Care Provider] - Follow up as needed Mode of Arrival: Ambulatory Information source: Patient Notes: Patient is a 68 year old female with CHF, HLD, renal insufficiency presents to the emergency department complaining of shortness of breath and a sore throat onset this morning. Patient states she woke up this morning and noted her throat was very dry and sore. She states she proceeded to look in the mirror and noticed it was "flaming red". Patient states the pain radiates down her esophagus and into her lungs. She states she recently rode in a car for 4 hours that had believes she has had exposure to Freon. She states her recently placed Freon in the car and she could see the Freon come out the vents while the air conditioning was blowing. Patient also states she is allergic to adhesive tape and reports recently putting new adhesive on her dentures last night. Lolis ent states she is still short of breath but no longer has any throat pain. She denies any vomiting, diarrhea, fevers or chills. Patient mentions having 4 episodes of neck pain described as "my throat constricting" that radiates into her chest and head over the last 4 months. She states she has a siderographist but has not seen them in the last several months. Currently has no chest pain. TRAVEL OUTSIDE OF THE [place] IN LAST 30 DAYS: No - Related Data Allergies/Adverse Reactions: adhesive tape [Adhesive Tape] Allergy (Intermediate, Verified 03/08/19 09:04) cyclobenzaprine [From Flexeril] Adverse Reaction (Verified 03/08/19 09:04) Past Medical History - General Information source: Patient - Social History Smoking Status: Never Smoker Cigarette use (# per day): No Chew tobacco use (# tins/day): No Smoking Education Provided: No Frequency of alcohol use: None Drug Abuse: None Lives with: Spouse/Significant other Family History: Reviewed & Not Pertinent - Past Medical History Cardiac Medical History: Reports: Hx Atrial Fibrillation, Hx Congestive Heart Failure, Hx Hypercholesterolemia, Hx Hypertension Endocrine Medical History: Reports: Hx Hypothyroidism Renal/ Medical History: Reports: Hx End Stage Renal Disease - renal insufficiency Musculoskeletal Medical History: Reports Hx Arthritis - left great toe, Reports Hx Fibromyalgia Psychiatric Medical History: Reports: Hx Bipolar Disorder Past Surgical History: Reports: Hx Appendectomy, Hx Hysterectomy - Immunizations Hx Diphtheria, Pertussis, Tetanus Vaccination: Yes Hx Pneumococcal Vaccination: 05/17/16 Review of Systems - Review of Systems Constitutional: No symptoms reported EENT: See HPI Cardiovascular: No symptoms reported Respiratory: See HPI, Short of breath Gastrointestinal: No symptoms reported Genitourinary: No symptoms reported Female Genitourinary: No symptoms reported Musculoskeletal: See HPI Skin: No symptoms reported Hematologic/Lymphatic: No symptoms reported Neurological/Psychological: No symptoms reported -: Yes All other systems reviewed and negative Physical Exam - Vital signs Vitals: Temp Pulse Resp BP Pulse Ox 97.7 F 57 L 16 134/65 H 95 03/08/19 09:17 03/08/19 09:17 03/08/19 09:17 03/08/19 09:17 03/08/19 09:17 - Notes Notes: GENERAL: Alert, interacts well. No acute distress. HEAD: Normocephalic, atraumatic. EYES: Pupils equal, round, and reactive to light. Extraocular movements intact. ENT: Oral mucosa moist, tongue midline. Nares patent, no nasal septal hematoma. Clear fluid behind the right TM. Posterior oropharynx is slightly injected, small amount of erythema. Small amount of irritation and erythema to the lower mandibular gingival mucosa, no signs of infection. NECK: Full range of motion. Supple. Trachea midline. LUNGS: Trace crackles in the RLL, no wheezes. No respiratory distress. HEART: Regular rate and rhythm. No murmurs, gallops, or rubs. ABDOMEN: Soft, non-tender. Non-distended. Bowel sounds present in all 4 quadrants. No guarding, rigidity, or rebound. EXTREMITIES: Moves all 4 extremities spontaneously. No edema, radial and dorsalis pedis pulses 2/4 bilaterally. No cyanosis. NEUROLOGICAL: Alert and oriented x3. Normal speech. PSYCH: Normal affect, normal mood. SKIN: Warm, dry, normal turgor. No rashes or lesions noted. Course - Re-evaluation Re-evalutation: 03/08/19 13:17 CBC unremarkable, CMP shows some hyperglycemia otherwise unremarkable, troponin negative x2, chest x-ray unremarkable, symptoms relieved by Magic mouthwash swish and swallow. EKG is nonischemic. Patient will be discharged home with Magic mouthwash for symptomatic relief of oral irritation. No evidence of krrj-onwr-azy-mouth disease or thrush. Discharged home. 03/08/19 17:28 Not feeling short of breath at all. - Vital Signs Vital signs: Temp Pulse Resp BP Pulse Ox 97.8 F 59 L 19 136/72 H 96 03/08/19 13:22 03/08/19 13:22 03/08/19 13:22 03/08/19 13:22 03/08/19 09:41 - Laboratory Result Diagrams: 03/08/19 09:24 03/08/19 09:24 Laboratory results interpreted by me: 03/08/19 09:24 Carbon Dioxide 32 H BUN 31 H Est GFR (Non-Af Amer) 55 L Glucose 124 H Calcium 10.5 H AST 39 H - EKG Interpretation by Me Additional EKG results interpreted by me: 03/08/19 13:18 EKG shows sinus bradycardia at a rate of 55, normal axis, LVH, T wave inversions in lead III, aVL, V4 and V5, the T wave inversions in lead III are improved from prior EKG on 02/13/2017, they are new in V4 and V5 per my interpretation. Discharge - Discharge Clinical Impression: Acute pain of mouth Condition: Stable Disposition: HOME, SELF-CARE Additional Instructions: Today there is no evidence of heart attack or infection in your mouth. I agree that you likely have a chemical irritation of your mouth. Please avoid using the denture adhesive that she changed to recently and please have your car rechecked to see if you possibly have some sort of air conditioning fluid leak. You may use the Magic mouthwash swish and swallow or swish and spit every 6 hours as needed for pain. Please return to the emergency department for any new or or concerning symptoms. Prescriptions: Nystatin/Dexameth/Diphen [Magic Mouthwash (Omh Formula) Susp] 5 ml PO QID #120 ml Referrals: Tila MCKNIGHT MD [Primary Care Provider] - Follow up as needed I personally performed the services described in the documentation, reviewed and edited the documentation which was dictated to the scribe in my presence, and it accurately records my words and actions.
== END 2019-03-08 13:30 | disposition home or self-care (01) ==
LOC: ER 09:03
DX: K13.79 Other lesions of oral mucosa (principal); R07.9 Chest pain, unspecified; R06.02 Shortness of breath; I48.91 Unspecified atrial fibrillation; I50.9 Heart failure, unspecified; E78.00 Pure hypercholesterolemia, unspecified; I11.0 Hypertensive heart disease with heart failure; E03.9 Hypothyroidism, unspecified; Z90.710 Acquired absence of both cervix and uterus
CPT/HCPCS: 93005; 99285; 36415; 85025; 80053; 84484; 83880; 71045; 93010; A9270; J3490

== ENCOUNTER 2019-10-13 07:09 | Emergency (ER) | payer MEDICARE, MEDICAID ==
[2019-10-13] MEDS ORDERED: METHYLPREDNISOLONE INJ 125 MG/2 ML SDV IV ONE (08:47)
[2019-10-13] MEDS ORDERED: IPRATROPIUM/ALBUTEROL 0.5-2.5 MG/3 ML AMPUL NEB ONE (08:47)
--- NOTE | 2019-10-13 08:49 | ER Document Report ---
ED Respiratory Problem - General Chief Complaint: Cold Symptoms Stated Complaint: COLD SYMPTOMS Time Seen by Provider: 10/13/19 08:15 Primary Care Provider: Tila MCKNIGHT MD [ACTIVE STAFF] - Follow up as needed Notes: CHIEF COMPLAINT: Shortness of breath for 7 days HPI: 68-year-old female presenting to the emergency department complaining of shortness of breath for 7 days. Believes that she has had fevers in the last 7 days. Patient states that she has a history of renal insufficiency, hypertension, CHF. States that she does not normally swelling the ankles when she has a CHF exacerbation and this feels similar to her last CHF exacerbation. No history of VT per the patient. Patient states that she did not take her blood pressure medications today. She does report a frontal headache. Patient states she has been taking [id number] medications for coughing and cold symptoms without resolution. She does report some shortness of breath. Denies chest pain ROS: See HPI - all other systems were reviewed and are otherwise negative Constitutional: no fever Eyes: no drainage, no blurred vision ENT: no runny nose, no sore throat Cardiovascular: no chest pain Resp: + SOB, no cough GI: no vomiting, no diarrhea, no abdominal pain : no dysuria Integumentary: no rash Allergy: no hives Musculoskeletal: no extremity pain or swelling Neurological: no numbness/tingling, no weakness, positive headache MEDICATIONS: I agree with the patient medications as charted by the RN. ALLERGIES: I agree with the allergies as charted by the RN. PAST MEDICAL HISTORY/PAST SURGICAL HISTORY: Reviewed and agree as charted by RN. SOCIAL HISTORY: Reviewed and agree as charted by RN. FAMILY HISTORY: No significant familial comorbid conditions directly related to patient complaint EXAM: Reviewed vital signs as charted by RN. CONSTITUTIONAL: Alert and oriented and responds appropriately to questions. Chronically ill-appearing; well-nourished, moderate distress secondary to shortness of breath HEAD: Normocephalic; atraumatic EYES: PERRL; Conjunctivae clear, sclerae non-icteric ENT: normal nose; no rhinorrhea; moist mucous membranes; pharynx without lesions noted, no uvula edema or deviation, no tonsillar hypertrophy, phonation normal NECK: Supple without meningismus; non-tender; no cervical lymphadenopathy, no masses CARD: RRR; no murmurs, no clicks, no rubs, no gallops; symmetric distal pulses RESP: Lung sounds with wheezing in all lung weiss decreased in the bases with rhonchi on the right. Pulse oximetry 95% on room air not hypoxic ABD/GI: Obese, normal bowel sounds; non-distended; soft, non-tender, no rebound, no guarding; no palpable organomegaly or masses. BACK: The back appears normal and is non-tender to palpation, there is no CVA tenderness EXT: Normal ROM in all joints; non-tender to palpation; no cyanosis, no effusions, no edema SKIN: Normal color for age and race; warm; dry; good turgor; no acute lesions noted NEURO: Moves all extremities equally; Motor and sensory function intact PSYCH: The patient's mood and manner are appropriate. Grooming and personal hygiene are appropriate. MDM: 68-year-old female with CHF history presenting with 1 week of subjective fevers with worsening shortness of breath not resolved by [id number]-[id number] medications. Patient is moderately hypertensive today, did not take her blood pressure medications. I will give the patient her medications. She states she does take Lasix and hydrochlorothiazide. Has a CHF history so will obtain screening cardiac labs, chest x-ray, influenza. Differential would include infectious process or CHF TRAVEL OUTSIDE OF THE [place] IN LAST 30 DAYS: No - Related Data Allergies/Adverse Reactions: adhesive tape [Adhesive Tape] Allergy (Intermediate, Verified 10/13/19 07:34) cyclobenzaprine [From Flexeril] Adverse Reaction (Verified 10/13/19 07:34) Past Medical History - Social History Smoking Status: Never Smoker Family History: Reviewed & Not Pertinent Patient has suicidal ideation: No Patient has homicidal ideation: No - Past Medical History Cardiac Medical History: Reports: Hx Atrial Fibrillation, Hx Congestive Heart Failure, Hx Hypercholesterolemia, Hx Hypertension Denies: Hx Coronary Artery Disease, Hx Heart Attack Pulmonary Medical History: Denies: Hx Asthma, Hx Bronchitis, Hx COPD, Hx Pneumonia, Hx Tuberculosis Neurological Medical History: Denies: Hx Cerebrovascular Accident, Hx Seizures Endocrine Medical History: Reports: Hx Hypothyroidism. Denies: Hx Diabetes Mellitus Type 1, Hx Diabetes Mellitus Type 2, Hx Hyperthyroidism Renal/ Medical History: Reports: Hx End Stage Renal Disease - renal insufficiency. Denies: Hx Peritoneal Dialysis GI Medical History: Denies: Hx Cirrhosis, Hx Gastroesophageal Reflux Disease, Hx Hepatitis Musculoskeletal Medical History: Reports Hx Arthritis - left great toe, Reports Hx Fibromyalgia Psychiatric Medical History: Reports: Hx Bipolar Disorder Infectious Medical History: Denies: Hx Hepatitis Past Surgical History: Reports: Hx Appendectomy, Hx Hysterectomy. Denies: Hx Pacemaker - Immunizations Hx Diphtheria, Pertussis, Tetanus Vaccination: Yes Hx Pneumococcal Vaccination: 05/17/16 Physical Exam - Vital signs Vitals: Temp Pulse Resp BP Pulse Ox 98.7 F 69 20 138/118 H 95 10/13/19 07:33 10/13/19 07:33 10/13/19 07:33 10/13/19 07:33 10/13/19 07:33 Course - Re-evaluation Re-evalutation: 10/13/19 10:30 Patient feels much better after breathing treatment very slight wheezing posterior lobes but much improved. Pulse oximetry 97% on room air. This may be bronchitis with bronchospasm. Her initial screening labs do not show acute emergent abnormalities. BNP is mildly elevated but she is on Lasix currently. Initial troponin is negative, low suspicion for ACS or acute CHF exacerbation at this time. Influenza was negative. 10/13/19 10:30 10/13/19 11:[address] Fontanez, attending. Will discharge home on albuterol, steroids, Zithromax, follow-up PCP. Patient increase Lasix to 40 mg daily for 3 days - Vital Signs Vital signs: Temp Pulse Resp BP Pulse Ox 98.7 F 69 22 H 154/83 H 97 10/13/19 07:33 10/13/19 07:33 10/13/19 10:07 10/13/19 10:07 10/13/19 10:07 - Laboratory Result Diagrams: 10/13/19 09:06 10/13/19 09:06 Laboratory results interpreted by me: 10/13/19 10/13/19 10/13/19 09:06 09:06 09:06 Lymph % (Auto) 46.6 H Seg Neutrophils % 36.8 L Calcium 10.5 H NT-Pro-B Natriuret Pep 862 H Discharge - Discharge Clinical Impression: Acute bronchitis with bronchospasm Fluid overload Qualifiers: Hypervolemia type: unspecified Qualified Code(s): E87.70 - Fluid overload, unspecified Condition: Stable Disposition: HOME, SELF-CARE Additional Instructions: Use the albuterol inhaler 2 puffs every 4 hours as needed for shortness of breath or wheezing. Take the steroids as prescribed. Take the Zithromax to treat the bronchitis. Follow-up closely with your primary care provider for reevaluation call for appointment. Increase your Lasix dose to 40 mg a day for the next 3 days then resume 20 mg daily Prescriptions: Prednisone [Deltasone 20 mg Tablet] 2 tab PO DAILY 5 Days tablet Albuterol Sulfate [Proair HFA Inhalation Aerosol 8.5 gm MDI] 2 puff IH Q4H PRN #1 mdi PRN Reason: Azithromycin [Zithromax 250 mg Tablet] 250 mg PO ASDIR PRN #6 tablet PRN Reason: Referrals: Tila MCKNIGHT MD [ACTIVE STAFF] - Follow up as needed
[2019-10-13 08:52] LABS: APPEARANCE,URINE CLEAR; BILIRUBIN,URINE NEGATIVE (NEGATIVE); COLOR,URINE STRAW; GLUCOSE, URINE NEGATIVE (NEGATIVE); KETONES,URINE NEGATIVE (NEGATIVE); LEUKOCYTE ESTERASE,URINE NEGATIVE (NEGATIVE); NITRITE,URINE NEGATIVE (NEGATIVE); PROTEIN,URINE NEGATIVE (NEGATIVE); UROBILINOGEN,URINE NEGATIVE mg/dL (<2.0)
[2019-10-13] MEDS ORDERED: ATENOLOL 50 MG TABLET PO ONE (08:52)
[2019-10-13] MEDS ORDERED: FUROSEMIDE INJ/PF 20 MG/2 ML SDV IV ONE (08:52)
[2019-10-13] MEDS ORDERED: LISINOPRIL 10 MG TABLET PO ONE (08:52)
[2019-10-13 09:19] LABS: ABSOLUTE BASOPHILS # (AUTO) 0.1 10^3/uL (0.0-0.2); ABSOLUTE EOSINOPHILS # (AUTO) 0.2 10^3/uL (0.0-0.6); ABSOLUTE LYMPHOCYTES (AUTO) 2.2 10^3/uL (0.5-4.7); ABSOLUTE MONOCYTES (AUTO) 0.5 10^3/uL (0.1-1.4); ABSOLUTE NEUT (AUTO) 1.7 10^3/uL (1.7-8.2); BASOPHILS % (AUTO) 1.5 % (0-2); EOSINOPHILS % (AUTO) 3.2 % (0-6); HEMATOCRIT 37.5 % (36.0-47.0); HEMOGLOBIN 12.8 g/dL (12.0-15.5); LYMPHOCYTES % (AUTO) 46.6 % (13-45); MEAN CORPUSCULAR HEMOGLOBIN 30.8 pg (27.0-33.4); MEAN CORPUSCULAR HGB CONC 34.3 g/dL (32.0-36.0); MEAN CORPUSCULAR VOLUME 90 fl (80-97); MONOCYTES % (AUTO) 11.9 % (3-13); PLATELET COUNT 239 10^3/uL (150-450); RED BLOOD COUNT 4.17 10^6/uL (3.72-5.28); RED CELL DISTRIBUTION WIDTH 13.1 % (11.5-14.0); SEGMENTED NEUTROPHILS % (AUTO) 36.8 % (42-78); TOTAL CELLS COUNTED % (AUTO) 100 %; WHITE BLOOD COUNT 4.6 10^3/uL (4.0-10.5)
[2019-10-13] MEDS ORDERED: ACETAMINOPHEN 325 MG TABLET PO ONE (09:28)
--- NOTE | 2019-10-13 09:46 | EKG REPORT ---
SEVERITY:- ABNORMAL ECG - SINUS RHYTHM NONSPECIFIC INTRAVENTRICULAR CONDUCTION DELAY BORDERLINE INFERIOR Q WAVES ST DEPRESSION, CONSIDER ISCHEMIA, INF LEADS : Confirmed by: Melanie Shields 13-Oct-2019 09:45:38
[2019-10-13 09:48] LABS: ALBUMIN 4.4 g/dL (3.5-5.0); ALKALINE PHOSPHATASE 68 U/L (38-126); ANION GAP 8 (5-19); ASPARTATE AMINO TRANSFERASE 28 U/L (14-36); BILIRUBIN,DIRECT 0.2 mg/dL (0.0-0.4); BILIRUBIN,TOTAL 0.5 mg/dL (0.2-1.3); BLOOD UREA NITROGEN 20 mg/dL (7-20); CALCIUM 10.5 mg/dL (8.4-10.2); CARBON DIOXIDE 29 mmol/L (22-30); CHLORIDE 101 mmol/L (98-107); GLUCOSE 101 mg/dL (75-110); POTASSIUM 4.9 mmol/L (3.6-5.0); TOTAL PROTEIN 7.4 g/dL (6.3-8.2)
[2019-10-13 09:58] LABS: NT PRO BNP 862 pg/mL (<125)
[2019-10-13 10:00] LABS: TROPONIN I < 0.012 ng/mL
[2019-10-13 10:12] LABS: A TYPE INFLUENZA AG NEGATIVE (NEGATIVE); B INFLUENZA AG NEGATIVE (NEGATIVE)
--- NOTE | 2019-10-13 10:27 | RADIOLOGY REPORT (SQ) ---
EXAM DESCRIPTION: CHEST 2 VIEWS COMPLETED DATE/TIME: 10/13/2019 9:45 am REASON FOR STUDY: chf vs pneumonia COMPARISON: 03/08/2019 EXAM PARAMETERS: NUMBER OF VIEWS: two views TECHNIQUE: Digital Frontal and Lateral radiographic views of the chest acquired. RADIATION DOSE: NA LIMITATIONS: none FINDINGS: LUNGS AND PLEURA: No opacities, masses or pneumothorax. No pleural effusion. MEDIASTINUM AND HILAR STRUCTURES: No masses or contour abnormalities. HEART AND VASCULAR STRUCTURES: Heart normal size. No evidence for failure. BONES: No acute findings. HARDWARE: None in the chest. OTHER: No other significant finding. IMPRESSION: NO ACUTE RADIOGRAPHIC FINDING IN THE CHEST. TECHNICAL DOCUMENTATION: JOB ID: [id number] [employer]- All Rights Reserved Reading location - IP/workstation name: [email or web address]
[2019-10-13 11:15] VITALS: BP 147/59
== END 2019-10-13 11:24 | disposition home or self-care (01) ==
LOC: ER 07:09
DX: J20.9 Acute bronchitis, unspecified (principal); E87.70 Fluid overload, unspecified; R06.02 Shortness of breath; R50.9 Fever, unspecified; R51 Headache; R05 Cough; I11.0 Hypertensive heart disease with heart failure; I50.9 Heart failure, unspecified; Z79.899 Other long term (current) drug therapy; I48.91 Unspecified atrial fibrillation
CPT/HCPCS: 93005; 94640; 99285; 96374; 96375; 36415; 85025; 80053; 81001; 84484; 87804; 83880; 71046; 93010; A9270 ×4; J1940; J2930; J7620

== ENCOUNTER 2020-08-27 15:07 | Emergency (ER) | payer MEDICARE, MEDICAID ==
--- NOTE | 2020-08-27 16:33 | ER Document Report ---
ED Medical Screen (RME) - General Chief Complaint: Neck Pain < 24hrs old Stated Complaint: NECK PAIN,KNOTS UNDER SKIN Time Seen by Provider: 08/27/20 16:22 Primary Care Provider: MARTA ORTEGA NP [Primary Care Provider] - Follow up as needed TRAVEL OUTSIDE OF THE [place] IN LAST 30 DAYS: No - HPI Notes: Patient is a 69 y/o female who presents with lightheadedness for the past two days. She states she has had three episodes of lightheadedness while standing. She also reports painful "knots" to her left posterior neck that came on three years ago. She denies syncope, chest pain, shortness of breath, abdominal pain and vomiting. She denies any medical problems. - Related Data Allergies/Adverse Reactions: adhesive tape [Adhesive Tape] Allergy (Intermediate, Verified 10/13/19 07:34) cyclobenzaprine [From Flexeril] Adverse Reaction (Verified 10/13/19 07:34) Past Medical History - Past Medical History Cardiac Medical History: Reports: Hx Atrial Fibrillation, Hx Congestive Heart Failure, Hx Hypercholesterolemia, Hx Hypertension Denies: Hx Coronary Artery Disease, Hx Heart Attack Pulmonary Medical History: Denies: Hx Asthma, Hx Bronchitis, Hx COPD, Hx Pneumonia, Hx Tuberculosis Neurological Medical History: Denies: Hx Cerebrovascular Accident, Hx Seizures Endocrine Medical History: Reports: Hx Hypothyroidism. Denies: Hx Diabetes Mellitus Type 1, Hx Diabetes Mellitus Type 2, Hx Hyperthyroidism Renal/ Medical History: Reports: Hx End Stage Renal Disease - renal insufficiency. Denies: Hx Peritoneal Dialysis GI Medical History: Denies: Hx Cirrhosis, Hx Gastroesophageal Reflux Disease, Hx Hepatitis Musculoskeltal Medical History: Reports Hx Arthritis - left great toe, Reports Hx Fibromyalgia Psychiatric Medical History: Reports: Hx Bipolar Disorder Infectious Medical History: Denies: Hx Hepatitis Past Surgical History: Reports: Hx Appendectomy, Hx Hysterectomy. Denies: Hx Pacemaker - Immunizations Hx Diphtheria, Pertussis, Tetanus Vaccination: Yes Physical Exam - HEENT Neck: Other - Full ROM, 4 erythematous macules to the left posterior neck Course - Re-evaluation Re-evalutation: I have greeted and performed a rapid initial assessment of this patient. A comprehensive ED assessment and evaluation of the patient, analysis of test results and completion of medical decision making process will be conducted by an additional ED providers. Doctor's Discharge - Discharge Referrals: JORDAN,MARTA BERTIN, GUSSET EDGER [Primary Care Provider] - Follow up as needed
[2020-08-27 17:00] LABS: ABSOLUTE EOSINOPHILS # (AUTO) 0.2 10^3/uL (0.0-0.6); ABSOLUTE LYMPHOCYTES (AUTO) 3.2 10^3/uL (0.5-4.7); ABSOLUTE MONOCYTES (AUTO) 0.9 10^3/uL (0.1-1.4); ABSOLUTE NEUT (AUTO) 4.8 10^3/uL (1.7-8.2); BASOPHILS % (AUTO) 0.3 % (0-2); EOSINOPHILS % (AUTO) 2.5 % (0-6); HEMATOCRIT 36.3 % (36.0-47.0); HEMOGLOBIN 12.3 g/dL (12.0-15.5); LYMPHOCYTES % (AUTO) 34.5 % (13-45); MEAN CORPUSCULAR HEMOGLOBIN 30.3 pg (27.0-33.4); MEAN CORPUSCULAR HGB CONC 33.8 g/dL (32.0-36.0); MEAN CORPUSCULAR VOLUME 90 fl (80-97); MONOCYTES % (AUTO) 9.8 % (3-13); PLATELET COUNT 241 10^3/uL (150-450); RED BLOOD COUNT 4.05 10^6/uL (3.72-5.28); RED CELL DISTRIBUTION WIDTH 13.1 % (11.5-14.0); SEGMENTED NEUTROPHILS % (AUTO) 52.9 % (42-78); TOTAL CELLS COUNTED % (AUTO) 100 %; WHITE BLOOD COUNT 9.2 10^3/uL (4.0-10.5)
[2020-08-27 17:17] LABS: ALBUMIN 4.6 g/dL (3.5-5.0); ALKALINE PHOSPHATASE 95 U/L (38-126); ANION GAP 9 (5-19); ASPARTATE AMINO TRANSFERASE 31 U/L (14-36); BILIRUBIN,DIRECT 0.2 mg/dL (0.0-0.4); BILIRUBIN,TOTAL 0.5 mg/dL (0.2-1.3); BLOOD UREA NITROGEN 31 mg/dL (7-20); CALCIUM 10.6 mg/dL (8.4-10.2); CARBON DIOXIDE 29 mmol/L (22-30); CHLORIDE 89 mmol/L (98-107); GLUCOSE 98 mg/dL (75-110); POTASSIUM 4.4 mmol/L (3.6-5.0); TOTAL PROTEIN 7.5 g/dL (6.3-8.2)
[2020-08-27 17:38] LABS: APPEARANCE,URINE CLEAR; BILIRUBIN,URINE NEGATIVE (NEGATIVE); COLOR,URINE YELLOW; GLUCOSE, URINE NEGATIVE (NEGATIVE); KETONES,URINE NEGATIVE (NEGATIVE); LEUKOCYTE ESTERASE,URINE LARGE (NEGATIVE); NITRITE,URINE NEGATIVE (NEGATIVE); PROTEIN,URINE NEGATIVE (NEGATIVE); UROBILINOGEN,URINE NEGATIVE mg/dL (<2.0)
[2020-08-27] MEDS ORDERED: HYDROCODONE/ACETAMINOPHEN 5-325 MG (6 TAB/ER DISP) PO PRN (20:58)
[2020-08-27] MEDS ORDERED: HYDROCODONE/ACETAMINOPHEN 5-325 MG TABLET PO ONE (20:58)
[2020-08-27] MEDS ORDERED: ACYCLOVIR 800 MG TABLET PO ONE (20:59)
--- NOTE | 2020-08-27 21:08 | ER Document Report ---
ED General - General Chief Complaint: Dizziness Stated Complaint: NECK PAIN,KNOTS UNDER SKIN Time Seen by Provider: 08/27/20 16:22 Primary Care Provider: MARTA ORTEGA NP [Primary Care Provider] - Follow up as needed TRAVEL OUTSIDE OF THE [place] IN LAST 30 DAYS: No - HPI Context: Time: 2099 Chief Complaint: [Painful rash on neck] [69-year-old female presents complaining of a painful rash on the right side of her neck that has been present for the past 2 days. Patient denies coming into contact with any type of poison ruma or poison oak, new detergents, new soaps or starting new medications. Patient states she did have chickenpox as a child. ] History obtained from [patient] Symptoms began:[Yesterday] Onset: [Gradual] Timing: [Gradual] Quality: [Sharp and burning] Intensity: [5] Location: [Right posterior neck] Radiation: [Denies] [The pain does not migrate to a new location.] Aggravating factors: [none] Relieving factors: [none] [Denies] SOB [Denies] nausea [Denies] vomiting [Denies] sweats [Denies] fever [Denies] cough [Denies] calf or leg swelling or pain - Related Data Allergies/Adverse Reactions: adhesive tape [Adhesive Tape] Allergy (Intermediate, Verified 10/13/19 07:34) cyclobenzaprine [From Flexeril] Adverse Reaction (Verified 10/13/19 07:34) Past Medical History - General Information source: Patient - Social History Smoking Status: Unknown if Ever Smoked Family History: Reviewed & Not Pertinent - Past Medical History Cardiac Medical History: Reports: Hx Atrial Fibrillation, Hx Congestive Heart Failure, Hx Hypercholesterolemia, Hx Hypertension Denies: Hx Coronary Artery Disease, Hx Heart Attack Pulmonary Medical History: Denies: Hx Asthma, Hx Bronchitis, Hx COPD, Hx Pneumonia, Hx Tuberculosis Neurological Medical History: Denies: Hx Cerebrovascular Accident, Hx Seizures Endocrine Medical History: Reports: Hx Hypothyroidism. Denies: Hx Diabetes Mellitus Type 1, Hx Diabetes Mellitus Type 2, Hx Hyperthyroidism Renal/ Medical History: Reports: Hx End Stage Renal Disease - renal insufficiency. Denies: Hx Peritoneal Dialysis GI Medical History: Denies: Hx Cirrhosis, Hx Gastroesophageal Reflux Disease, Hx Hepatitis Musculoskeletal Medical History: Reports Hx Arthritis - left great toe, Reports Hx Fibromyalgia Psychiatric Medical History: Reports: Hx Bipolar Disorder Infectious Medical History: Denies: Hx Hepatitis Past Surgical History: Reports: Hx Appendectomy, Hx Hysterectomy. Denies: Hx Pacemaker - Immunizations Hx Diphtheria, Pertussis, Tetanus Vaccination: Yes Hx Pneumococcal Vaccination: 05/17/16 Review of Systems - Review of Systems Notes: Review of systems as below unless otherwise stated in HPI. CONSTITUTIONAL [No] fever, [No] chills. EYES [No] eye pain. ENT [No] URI symptoms, [No] sore throat, [No] ear pain. CARDIOVASCULAR [No] chest pain, [No] palpitations, [No] edema. RESPIRATORY [No] Cough, [No] SOB, [No] wheezing. GASTROINTESTINAL [No] abdominal pain, [No] nausea, [No] Diarrhea, [No] Vomiting, [No] constipation, [No] melena, [No] rectal bleeding. GENITOURINARY [No] dysuria, [No] urinary frequency, [No] hematuria, [No] urinary urgency, [No] vaginal discharge, [No] vaginal bleeding. MUSCULOSKELETAL [No] Back pain. Positive neck pain SKIN Positive rash. NEUROLOGIC [No] Headache, [No] recent seizures, [No] paralysis,[No] parathesias. ENDOCRINE [No] polyuria. HEMO/LYMPATIC [No] easy brusing PSYCHIATRIC [No] depression. Physical Exam - Vital signs Vitals: Temp Pulse Resp BP Pulse Ox 97.6 F 62 18 189/78 H 95 08/27/20 16:48 08/27/20 16:48 08/27/20 16:48 08/27/20 16:48 08/27/20 16:48 - Notes Notes: CONSTITUTIONAL [Vital signs reviewed, Patient appears uncomfortable, Alert and oriented X 3, Normal stature.] HEAD [Atraumatic, Normocephalic.] EYES [Eyes are normal to inspection, No discharge from eyes, Extraocular muscles intact, Sclera are normal, Conjunctiva are normal.] ENT [External ears normal to inspection, Nose examination normal, Mouth normal to inspection.] NECK Decreased ROM secondary to pain, No jugular venous distention, No meningeal signs, vesicular lesions in a C4 dermatomal distribution are present on the patient's right posterior neck] RESPIRATORY CHEST [Chest is nontender, Breath sounds normal, No respiratory distress.] CARDIOVASCULAR [RRR, No murmurs, Normal S1 S2, No rub, No gallop.] ABDOMEN [Abdomen is nontender, No pulsatile masses, No other masses, Bowel sounds normal, No distension, No peritoneal signs, No hernias.] BACK [There is no CVA Tenderness, There is no tenderness to palpation, Normal inspection.] UPPER EXTREMITY [Inspection normal, No cyanosis, No clubbing, No edema, LOWER EXTREMITY [Inspection normal, No cyanosis, No clubbing, No edema, No calf tenderness, NEURO [No focal motor deficits, No focal sensory deficits, Speech normal.] SKIN [Skin is warm, Skin is dry, Skin is normal color.] LYMPHATIC [No adenopathy in neck.] PSYCHIATRIC [Normal affect. ] Course - Re-evaluation Re-evalutation: 08/27/20 21:19 Results of ED MSE discussed with patient. All questions were answered prior to discharge. Emergency signs and symptoms, reasons to return to the emergency department discussed with patient. - Vital Signs Vital signs: Temp Pulse Resp BP Pulse Ox 97.6 F 62 18 189/78 H 95 08/27/20 16:48 08/27/20 16:48 08/27/20 16:48 08/27/20 16:48 08/27/20 16:48 - Laboratory Results Result Diagrams: 08/27/20 16:45 08/27/20 16:45 Laboratory Results Interpreted: 08/27/20 08/27/20 16:45 16:45 Sodium 126.6 L Chloride 89 L BUN 31 H Calcium 10.6 H Ur Leukocyte Esterase LARGE H Critical Laboratory Results Reviewed: Yes Attending or Supervising Physician who Reviewed Labs: SANDIE TORRES IV - low sodium, wbcs and LE in urine - Radiology Results Critical Radiology Results Reviewed: No Critical Results Discharge - Discharge Clinical Impression: Hyponatremia Shingles Qualifiers: Herpes zoster complications: without complications Qualified Code(s): B02.9 - Zoster without complications UTI (urinary tract infection) Qualifiers: Urinary tract infection type: site unspecified Hematuria presence: with hematuria Qualified Code(s): N39.0 - Urinary tract infection, site not specified Condition: Stable Disposition: HOME, SELF-CARE Additional Instructions: Return to the Emergency Department without delay if any worse. HOME CARE INSTRUCTIONS & INFORMATION: Thank you for choosing us for your medical needs. We hope you're satisfied with the care you received. After you leave, you must properly care for your problem and, at the same time, observe its progress. Any condition can change. Some illnesses can change rapidly over hours or days. If your condition worsens, return to the Emergency Department or see your physician promptly. ABOUT YOUR X-RAYS AND EKG'S: If you had an EKG or X-rays taken, they have been read by the Emergency Physician. The X-rays and EKG's will also be read by a Radiologist or Fire Fighter within 24 hours. If discrepancies are noted, you will be notified by telephone. Please be certain the ED has a correct telephone number & address where you can be reached. Also, realize that some fractures or abnormalities do not show up on initial X-rays. If your symptoms continue, see your physician. ABOUT YOUR LABORATORY TEST: If you had laboratory tests, the results have been reviewed by the Emergency Physician. Some test results (for example cultures) may not be available for several days. You will be contacted if any test result shows you need additional treatment. Please be certain the ED has a correct telephone number and address where you can be reached. ABOUT YOUR MEDICATIONS: You will receive instructions on how to take your medicine on the prescription label you receive. Additional information may be provided by the Pharmacy. If you have questions afterwards, call the ED for clarification or further instructions. Some prescribed medications may cause drowsiness. Do not perform tasks such as driving a car or operating machinery without consulting your Pharmacist. If you feel you need a refill of pain medication, your condition will need re-evaluation. Please do not call for a refill of any medication. ABOUT YOUR SIGNATURE: Signature of this document acknowledges to followin. Understanding that you received emergency treatment and that you may be released before al medical problems are known or treated. Please be certain the ED has a correct phone number & address where you can be reached. 2. Acknowledgement that you will arrange for follow-up care as recommended. 3. Authorization for the Emergency Physician to provide information to your follow-up Physician in order to maximize your care. AT ANY TIME, IF YOUR SYMPTOMS CHANGE SIGNIFICANTLY OR WORSEN OR YOU DEVELOP NEW SYMPTOMS, RETURN TO THE EMERGENCY DEPARTMENT IMMEDIATELY FOR RE-EVALUATION. OUR GOAL IS TO PROVIDE EXCELLENT MEDICAL CARE! WE HOPE THAT WE HAVE MET YOUR EXPECTATIONS DURING YOUR EMERGENCY DEPARTMENT VISIT AND THAT YOU FEEL YOU HAVE RECEIVED EXCELLENT CARE! Shingles You have shingles. Shingles is caused by the chicken pox virus, The virus has been surviving dormant in a nerve cell since you had chicken pox years ago. The virus has spread down a nerve root to reach the skin. Typically, an band-like area of pain and skin sensitivity develops, then small blisters erupt in the area. Shingles lasts two or three weeks, but sometimes leaves persistent pain. You are contagious -- you can give children chicken pox. But you can't give anyone shingles. Antiviral medicines (such as acyclovir or famciclovir) can help, but the rash usually worsens for about a week. Pain medication is often given if the area hurts. Antihistamines such as Benadryl may be necessary for itching if it does not respond to soda baths and calamine lotion. Sometimes cortisone medicine or nerve-block shots are necessary if pain is severe. If the area remains severely painful as the sores heal, or if you suspect an infection developing in the sores, see your doctor. Hyponatremia You have an abnormally low level of serum sodium, called hyponatremia. Low serum sodium may cause weakness, fatigue, confusion, or even seizures. Usually, low sodium is due to taking diuretics (water pills), combined with drinking too much water. It can also be due to excessive vomiting or diarrhea. If no obvious cause is evident, further evaluation will be necessary. If the hyponatremia results from taking diuretics, it's treated by restricting the amount of water you can drink. If it's due to vomiting and diarrhea, it's treated by drinking liberal amounts of rehydration solution (for example Lytren or Pedialyte). A follow-up blood test is often done to see that the sodium is returning to normal. Call the physician if you have severe weakness, muscle twitching or cramping, palpitations (pounding or irregular heartbeat), confusion, headache, seizures, or any other new or alarming symptoms. Urinary Tract Infection Your evaluation indicates that you have a urinary tract infection. This is due to germs growing in the bladder. This is a common problem. This infection usually responds quickly to antibiotics. Your antibiotic should be taken exactly as prescribed. Drink plenty of fluids -- three to four quarts a day. Occasionally, a bladder anesthetic will be prescribed to help stop the feeling of urgency until the antibiotic has a chance to clear the infection. This may cause your urine to be dark orange. Certain urine infections require a culture. If the doctor obtained a culture, the results will be back in two days. You should call to see if a change in treatment is needed. A repeat urinalysis after you finish treatment is often recommended. The physician will let you know if further testing is required. Call the doctor if you develop fever, chills, flank pain, inability to urinate, or blood in the urine. Prescriptions: Hydrocodone/Acetaminophen [[place] 5-325 mg Tablet] 1 tab PO Q6HP PRN #20 tablet PRN Reason: pain Nitrofurantoin Monohyd/M-Cryst [Macrobid 100 mg Capsule] 100 mg PO BID 7 Days #14 cap Acyclovir [Zovirax 800 mg Tablet] 800 mg PO 5XD 10 Days #50 tab Referrals: MARTA ORTEGA, FISCAL TECHNICIAN [Primary Care Provider] - Follow up as needed
[2020-08-27] MEDS ORDERED: NITROFURANTOIN MONOHYD/M-CRYST 100 MG CAPSULE PO ONE (21:11)
[2020-08-27] MEDS ORDERED: ACYCLOVIR 800 MG TABLET ONE (21:14)
[2020-08-27 21:44] VITALS: BP 142/70
== END 2020-08-27 21:43 | disposition home or self-care (01) ==
LOC: ER 15:07
DX: B02.9 Zoster without complications (principal); N39.0 Urinary tract infection, site not specified; R31.9 Hematuria, unspecified; E87.1 Hypo-osmolality and hyponatremia; M54.2 Cervicalgia; I10 Essential (primary) hypertension; Z91.048 Other nonmedicinal substance allergy status
CPT/HCPCS: 99284; 36415; 85025; 80053; 81001; A9270 ×3; J3490; J8499